=== PATIENT | male | born 1940 | race Caucasian/White ===

== ENCOUNTER 2024-03-21 09:44 | Outpatient (CLI) | payer MEDICARE, SELFPAY ==
[2024-03-21 10:30] LABS: Albumin Level 4.2 g/dL (3.5-5.1); Estimated Glomerular Filt Rate 48
== END 2024-03-21 09:45 | disposition home or self-care (01) ==
PROVIDERS: Visit Provider Orthopaedic Surgery
DX: Z01.812 Encounter for preprocedural laboratory examination (principal); M16.11 Unilateral primary osteoarthritis, right hip
CPT/HCPCS: 36415; 82040; 82565

== ENCOUNTER 2024-04-23 12:49 | Outpatient (CLI) | payer MEDICARE, SELFPAY ==
[2024-04-23 14:20] LABS: Basophils Percent Auto 0.3 % (0.2-1.2); Eosinophils Absolute Auto 0.1 K/mm3 (0-0.3); Eosinophils Percent Auto 0.9 % (0-4.4); Hematocrit 42.8 % (42.0-52.0); Hemoglobin 14.8 g/dL (14.0-18.0); Immature Granulocyte Absolute 0.02 K/mm3 (0.00-0.031); Immature Granulocyte Percent A 0.3 % (0-0.5); Lymphocytes Absolute Auto 1.34 K/mm3 (0.9-3.2); Lymphocytes Percent Auto 17.2 % (18.3-44.2); Mean Corpuscular HGB Conc 34.6 g/dl (32-36); Mean Corpuscular Hemoglobin 31.5 pg (26-34); Mean Corpuscular Volume 91.1 fl (80-100); Mean Platelet Volume 9.2 fl (7.4-10.4); Monocytes Absolute Auto 0.5 K/mm3 (0.1-0.6); Monocytes Percent Auto 6.3 % (2.6-8.5); Neutrophils Absolute Auto 5.8 K/mm3 (1.3-6.7); Platelet Count Result 152 k/mm3 (150-375); Red Cell Distribution Width 12.3 % (11.5-14.5); White Blood Count 7.8 K/mm3 (4.5-10.0)
[2024-04-23 14:38] LABS: Hemoglobin A1C 5.4 % (<5.7)
[2024-04-23 14:40] LABS: Glucose 158 mg/dL (65-110)
[2024-04-23 15:00] LABS: Urine Cotinine NEGATIVE
[2024-04-23 15:39] LABS: MRSA (PCR) NOT DETECTED (NOT DETECTE)
== END 2024-04-23 12:50 | disposition home or self-care (01) ==
LOC: ANHSURGERY 12:56
PROVIDERS: Visit Provider Orthopaedic Surgery
DX: M16.11 Unilateral primary osteoarthritis, right hip (principal)
CPT/HCPCS: 80307; 82947; 83036; 85025; 87641

== ENCOUNTER 2024-05-08 02:45 | Day surgery (SDC) | payer MEDICARE, SELFPAY ==
--- NOTE | 2024-04-23 13:39 | PC.NURSE ---
Report to the Outpatient Waiting Room, entrance under the green pavilion located off [facility], at time _11:00 AM on date05/08/24 . Planned Procedure Time: _1:00 PM .? Time changes happen often and if your time is changed the preop area will call you the afternoon before. - You and your visitor will be asked to self-screen and do not enter if you have any COVID symptoms. Please call surgeon if you need to reschedule. - A mask is optional within the hospital at this time. Patients may have clear liquids (water, carbonated beverages, clear teas, apple juice) until 3 hours prior to surgery( 10 AM) with a maximum of 20 ounces. - No food from midnight until time of surgery and no smoking - Infants may have breast milk until 4 hours before surgery, formula 6 hours prior to surgery. - Children will be allowed to drink immediately following surgery.? If applicable, please bring a bottle or sippy cup to assist with drinking. Juice, water, soda, and popsicles are readily available.? For infants on formula, please bring formula the day of surgery.? Pacifiers are allowed. Take only the following medications with a SIP of water on the morning of surgery: __NONE DO NOT STOP ANY OF YOUR OTHER PRESCRIPTION MEDICATIONS PRIOR TO SURGERY EXCEPT THE FOLLOWING Medications to discontinue per physician ___HOLD IBUPROFEN 7 DAYS PRE OP PER DR HOOD LAST DOSE 04/30/24. MAY TAKE TYLENOL IF NEEDED FOR PAIN. HOLD ALL VITAMINS 3 DAYS PRE OP .LAST DOSE 05/04/24 Please no make-up, nail angolan, hairspray, perfume, deodorant, or body powder the day of surgery.? No jewelry (including any body piercings) or valuables the day of surgery, leave them at home.? Please take a shower or bath the night before, or the morning of, surgery with an antibacterial soap.? Wear comfortable, loose fitting clothing.? Children are encouraged to wear pajamas. - Jewelry must be removed prior to entering the operating room.? Rings and piercings that are not removed may be cut off. - The hospital will not accept responsibility for valuables.? - Please leave all valuables, including medications, at home the day of surgery. If you are going home after surgery, a licensed gravel truck driver must drive you home.? - NO public transportation without another adult if you receive anesthesia. - We recommend that an adult stay with you for 24 hours following discharge. - We also recommend that you do not drive, make important decision, drink alcoholic beverages, or take any drugs that were not prescribed by your health care provider for at least 24 hours after your discharge time. Follow any additional instructions given to you from your surgeon. VERBAL AND WRITTEN instructions given to ___PATIENT and asked if any additional questions and then verbalized understanding. Patient advised to call surgeon office or pre surgery nurse liaison [phone] if any additional questions.
[2024-04-23 14:01] VITALS: BP 163/69; PULSE 74; RESP 18; TEMP 36.9; O2SAT 97
[2024-05-08] VITALS (12 sets, daily range): BP systolic 131–175; BP diastolic 50–72; PULSE 52–102; RESP 14–20; TEMP 36.2–36.7; O2SAT 93–100
--- NOTE | ~2024-05-08 | XR_ITS ---
XR hip RT min 2V Ordering provider: Chace Lundberg MD History: . POST OP RIGHT TOTAL HIP . Comparison: None. FINDINGS: BONES: No acute fracture or dislocation. HIP JOINT SPACES: Right hip arthroplasty SOFT TISSUES: Postoperative changes in the right hip area. IMPRESSION: No acute osseous abnormality. Right hip arthroplasty. Reviewed, dictated and finalized at location A.
--- NOTE | 2024-05-08 07:21 | WPDHPUPDATE1 ---
History and Physical Update Update Date/Time: 05/08/24 07:21 History and Physical has been reviewed, including an updated exam of the patient. There are NO changes in the patient's condition. Risks, benefits, and alternatives have been discussed and questions answered. Patient agrees to proceed with procedure.
[2024-05-08] MEDS: ACETAMINOPHEN 500 MG TABLET 1000 MG PO (11:10)
[2024-05-08] MEDS: TRANEXAMIC ACID 1,000MG/ISO100 1,000 MG/100 ML BAG 200 MG IVPB (11:15)
[2024-05-08] MEDS: LACTATED RINGERS 1,000 ML 30 ML IV CONT ×2 (11:15→15:37)
--- NOTE | 2024-05-08 13:07 | WPDANESEPPF ---
Anes - Initial Pre Proc Eval Procedure: Operation Date: 05/08/24 13:00 Proposed Procedures p Right Total Hip Arthroplasty - Chace Lundberg MD Date/Time: 05/08/24 13:07 Surgeon: Chace Lundberg MD Pre Op Diagnosis: primary oa right hip Patient Data Age: 84 Gender: M Height: 1.78 m Weight: 94.4 kg Last Vital Signs Temp 97.2 F L 05/08/24 11:13 Pulse 59 L 05/08/24 11:13 Resp 18 05/08/24 11:13 BP 175/50 H 05/08/24 11:13 Pulse Ox 97 05/08/24 11:13 O2 Del Method Room Air 05/08/24 11:13 Allergies Allergy/AdvReac Type Severity Reaction Status Date / Time No Known Allergies Allergy Verified 05/08/24 11:31 Home Medications Medication Instructions Recorded Confirmed Type vitamin A-vit C-vit E-zinc-Cu 1 tablet PO BID 01/09/24 05/08/24 History tablet ibuprofen 600 mg tablet 600 mg PO PRN PRN Pain 04/23/24 05/08/24 History rivaroxaban 10 mg tablet (Xarelto) 10 mg PO DAILY #30 tabs 04/25/24 Rx Laboratory Tests 05/08/24 11:13 Blood Type A Negative Antibody Screen Negative Patient hx anesthesia problems: none Family hx anesthesia problems: none Results Review: All pre-operative results and documents have been reviewed as part of the pre-operative evaluation. [facility] Surgical History Surgical History History of cholecystectomy (~2018) History of colon resection (~2016) History of hernia surgery (~1967) Family History Family History Mother Colon cancer Father Lung cancer Social History Social History Smoking packs per day: 1 Smoking cigarettes per day: 20.0 Years smoked: 15 Smoking pack-years: 15.00 Smoking status: Former smoker Tobacco type: cigarettes Smoking end date: 07/18/77 Additional smoking assessment comments: DENIES ANY FORM OF TOBACCO USE Alcohol intake: current Drinks per week: 12 Substance use: never Do You Feel Safe in your Home?: Yes Lack of Transportation: No Lack of Food: Never True Current Housing: I Have Housing Concerned About Future Housing: No Difficulty Paying Gas/Electric Bills: No Difficulty Paying for Meds: No Currently Unemployed: No Education: Master's Degree or Higher Difficulty w/ Childcare or Family Care: No Living arrangements: with family Spiritual care concerns: No Anes - Eval Final PreProcedure Day of Procedure 05/08/24 13:07 Patient weight: normal Heart: regular rate and rhythm Lungs: clear to auscultation Airway: Mallampati scale class III Neurological: alert and oriented Last oral intake: >/= 8 hours ASA classification: III Emergent: no Anesthetic plan: proceed Anesthesia type and monitoring: general ETT and standard monitoring Results Review: All pre-operative results and documents have been reviewed as part of the pre-operative evaluation. Informed Consent: The patient's anesthetic plan and its attendant risks and benefits were discussed with the patient/family/POA. Questions were solicited and answers provided to the satisfaction of the patient/family/POA.
[2024-05-08] MEDS: ceFAZolin 2 GM/D5W 50 ML 2 GM/50 ML BAG IVPB ×2 (13:24→20:46)
[2024-05-08] MEDS: SODIUM CHLORIDE 0.9% IV 37.7 ML, MORPHINE SULFATE INJ (*CRX) 2 MG, ROPivacaine HCL 1% 2... INFILTRATE (14:08)
--- NOTE | 2024-05-08 15:50 | W.PM.PROC2 ---
Procedure Note - Detailed Date of Procedure 05/08/24 Pre-op Diagnosis Right hip degenerative arthritis. Post-op Diagnosis Same Procedure Performed Right Total Hip Arthroplasty Surgeon Chace Lundberg MD Outdoor Pursuits Instructor Bernadette Flores PA-C Anesthesia General Findings Advanced disease. Significant varus neck angle. <5 degrees [place] femur anteversion. Combined anteversion 35 with 10 elevated liner. Excellent bone quality. Description of Procedure The patient was given preoperative antibiotics. A general anesthetic was administered. The patient was carefully placed in the lateral decubitus position on the PEG board. The shoulders and hips were carefully positioned for component and leg length positioning reference. The hip was prepped and draped in the usual sterile fashion. A longitudinal incision was created over the posterior aspect of the greater trochanter. Careful dissection was brought down through the deep fascia with electrocautery. A minimally invasive optimized posterior approach to the hip was performed. The short external rotators and capsule were taken down in an L-shaped capsulotomy. The tissue was tagged for later repair using number 2 high strength suture. The femoral neck was measured and taken in situ. The femoral head was removed. The acetabulum was carefully exposed. The inferior capsule was released. The labrum was resected. The acetabulum was sequentially reamed to one over the intended cup size. The cup was impacted into position with excellent press-fit. Typical anatomic landmarks, including the bony contact points as well as the inferior transverse acetabular ligament were used to confirm cup positioning with preoperative templating. Attention was turned to the femur, which was carefully exposed. The hip was reamed and then broached sequentially. Excellent press-fit was obtained with the broach. The hip was trialed. Measurements were utilized, including the lesser trochanter as well as the center of the femoral head and the tip of the trochanter, and excellent assessment of the offset and leg lengths were confirmed. The real component was impacted into position. Trialing confirmed appropriate leg length and offset with soft tissue balancing as well apparent feel of the leg, both at the knee and the heel. Soft tissues were assessed using the the iliotibial band. Reduction of the posterior capsule and external rotators were also used as a secondary assessment. The hip was copiously irrigated with pulsatile lavage periodically throughout the procedure. The real components were then assembled and reduced. The hip was stable throughout typical maneuvers, including extension, external rotation to 70 degrees, the position of sleep as well as flexion to 90 degrees with internal rotation past 30 degrees. The shake test confirmed stability without impingement. Osteophytes were removed as necessary. The short external rotators and capsule were repaired back to the posterior trochanter through drill holes. The deep fascia was repaired with running number 2 barbed suture, followed by 2-0 Stratafix suture and 3-0 Stratafix suture in the dermis. Steri-Strips were placed on the skin, followed by a sterile occlusive dressing. There were no complications. Meticulous hemostasis was maintained with the AquaMantys device. The patient was brought to the recovery room in stable condition. There were no complications. Physician embroidery assistant, Bernadette Flores PA-C, required for surgery; including patient positioning, draping, tissue retraction, maintaining instrument position, hip dislocation/ relocation, wound closure, and dressing placement. Implants The Accolade II hip stem, 127 degree size 6 , was utilized with excellent press-fit. The 56 mm Trident II acetabular component was impacted with excellent press-fit stability. 10 degree elevated polyethylene liner the +2.5, 36 mm Biolox ceramic femoral head was utilized. Estimated Blood Loss
--- NOTE | 2024-05-08 16:35 | ADMGEN ---
This patient, Mariano Baca, was admitted to 3 [facility] Surg Room 320-01. Patient/family oriented to hospital policies and general routines including ID bracelet, bed and alarms, visiting hours, pain management, procedures, bathroom and other care routines, personal items, smoking policy, room service/diet, and visiting hours. Information on how to activate the Rapid Response Team has been discussed. Patient/Family are encouraged to report perceived risks to care and to ask questions if they do not understand what they are told or what they should do.
[2024-05-08] MEDS: SENNA/DOCUSATE SODIUM TABLET 2 TAB PO (17:26)
[2024-05-08] MEDS: CYCLOBENZAPRINE HCL 10 MG TABLET PO (17:27)
[2024-05-08] MEDS: oxyCODONE/ACETAMINOPHEN (*CRX) 10-325 MG TABLET 1 TAB PO (17:27)
[2024-05-08] MEDS: RIVAROXABAN 10 MG TABLET PO (20:26)
[2024-05-08] MEDS: FAMOTIDINE 20 MG TABLET PO (20:26)
[2024-05-08] MEDS: ACETAMINOPHEN 325 MG TABLET 650 MG PO (23:41)
[2024-05-09 04:00] VITALS: BP 140/58; PULSE 52; RESP 18; TEMP 36.7; O2SAT 96
--- NOTE | 2024-05-09 04:19 | PC.NURSE ---
read, reviewed and agree with Kathleen Solares rn charting and documentation
[2024-05-09] MEDS: ceFAZolin 2 GM/D5W 50 ML 2 GM/50 ML BAG IVPB ×2 (05:11→12:01)
[2024-05-09] MEDS: ACETAMINOPHEN 325 MG TABLET 650 MG PO ×2 (05:11→12:01)
[2024-05-09 06:56] LABS: Basophils Percent Auto 0.2 % (0.2-1.2); Eosinophils Absolute Auto 0.1 K/mm3 (0-0.3); Eosinophils Percent Auto 0.9 % (0-4.4); Hematocrit 38.1 % (42.0-52.0); Hemoglobin 12.4 g/dL (14.0-18.0); Immature Granulocyte Absolute 0.03 K/mm3 (0.00-0.031); Immature Granulocyte Percent A 0.4 % (0-0.5); Immature Platelet Fraction Pct 1.8 % (0.9-11.2); Lymphocytes Absolute Auto 1.38 K/mm3 (0.9-3.2); Lymphocytes Percent Auto 17.1 % (18.3-44.2); Mean Corpuscular HGB Conc 32.5 g/dl (32-36); Mean Corpuscular Hemoglobin 30.7 pg (26-34); Mean Corpuscular Volume 94.3 fl (80-100); Mean Platelet Volume 9.5 fl (7.4-10.4); Monocytes Absolute Auto 0.8 K/mm3 (0.1-0.6); Monocytes Percent Auto 9.4 % (2.6-8.5); Neutrophils Absolute Auto 5.8 K/mm3 (1.3-6.7); Platelet Count Result 124 k/mm3 (150-375); Red Blood Count 4.04 M/mm3 (4.6-6.20); Red Cell Distribution Width 12.8 % (11.5-14.5); White Blood Count 8.1 K/mm3 (4.5-10.0)
[2024-05-09 07:05] LABS: Potassium 4.5 mmol/L (3.4-5.0)
[2024-05-09 07:17] LABS: Anion Gap 4 mmol/L (4-12); Blood Urea Nitrogen 19 mg/dL (9-20); Calcium 8.4 mg/dL (8.4-10.2); Carbon Dioxide 28 mmol/L (22-30); Chloride 103 mmol/L (98-107); Estimated CRCL calculation 40 ml/min; Estimated Glomerular Filt Rate 53; Glucose 95 mg/dL (65-110); Sodium 135 mmol/L (137-145)
[2024-05-09 08:00] VITALS: BP 135/61; PULSE 51; RESP 18; TEMP 36.5; O2SAT 97
[2024-05-09] MEDS: polyethylene glycoL 3350 17 GM POWD.PACK PO (08:28)
[2024-05-09] MEDS: SENNA/DOCUSATE SODIUM TABLET 2 TAB PO (08:28)
[2024-05-09] MEDS: FAMOTIDINE 20 MG TABLET PO (08:28)
[2024-05-09] MEDS: oxyCODONE/ACETAMINOPHEN (*CRX) 10-325 MG TABLET 1 TAB PO (08:28)
[2024-05-09 11:51] VITALS: BP 113/59; PULSE 52; RESP 18; TEMP 36.7; O2SAT 97
[2024-05-09] MEDS: CYCLOBENZAPRINE HCL 10 MG TABLET PO (12:01)
--- NOTE | 2024-05-09 15:53 | PM.DS ---
DS: Admitting Diagnosis Discharge Date 05/09/24 Admitting Diagnosis Right hip arthritis. DS: Discharge Diagnosis Discharge Diagnosis (1) Orthopedic aftercare for joint replacement: Qualifiers: Joint replacement surgery site: hip Laterality: right Qualified Code(s): Z47.1 - Aftercare following joint replacement surgery; Z96.641 - Presence of right artificial hip joint Code(s): Z47.1 - Aftercare following joint replacement surgery Status: Acute (2) Status post total hip replacement, right: Code(s): Z96.641 - Presence of right artificial hip joint Status: Acute DS: Summary Hospital Course Reason for hospitalization: Total hip arthroplasty. Hospital Course: Tolerated surgery well. Progressed appropriately with therapy. Status at Discharge Functional status at discharge: uses cane/walker Overall status at discharge: patient is progressing back to baseline Time Spent with Patient Time attestation: Total time spent providing and/or coordinating discharge services: Exam Const: General: no acute distress Resp: Effort & Inspection: normal respiratory effort Skin: Other: Wound healing well. Mepilex dressing intact. No hematoma or drainage. Neuro: Motor exam (neuro): 5/5 motor strength present throughout Sensory Exam: normal sensation Psych: Mental Status: mental status grossly normal Speech and movement: Normal speech and movement present DS: Data Data Completed and Pending Labs on day of discharge: Labs from last 24 hours 05/09/24 06:06 WBC 8.1 RBC 4.04 L Hgb 12.4 L Hct 38.1 L MCV 94.3 MCH 30.7 MCHC 32.5 RDW 12.8 Plt Count 124 L MPV 9.5 Immature Gran % (Auto) 0.4 Neut % (Auto) 72.0 Lymph % (Auto) 17.1 L Dickey % (Auto) 9.4 H Eos % (Auto) 0.9 Baso % (Auto) 0.2 Lymph # (Auto) 1.38 Dickey # (Auto) 0.8 H Eos # (Auto) 0.1 Baso # (Auto) 0.0 Abs Immat Gran (auto) 0.03 Absolute Neuts (auto) 5.8 Absolute Nucleated RBC 0.000 Nucleated RBC % 0.0 % Immature Plt Fraction 1.8 Sodium 135 L Potassium 4.5 Chloride 103 Carbon Dioxide 28 Anion Gap 4 BUN 19 Creatinine 1.30 Estim Creat Clear Calc 40 Estimated GFR 53 L Glucose 95 Calcium 8.4 Discharge Plan Discharge Patient Disposition: Home, Self-Care Discharge Instructions: See green instruction sheets Patient Instructions: Rivaroxaban (By mouth) Stand Alone Forms: General Discharge Instructions Follow-up/Referrals: Bernadette Flores PA [Physician Criminal Justice Instructor] - Discharge Medications: New oxycodone-acetaminophen 5-325 mg tablet 1 - 2 tablet PO Q4-6H PRN (Reason: pain) Qty: 30 0RF Continued vitamin A-vit C-vit E-zinc-Cu Tablet 1 tablet PO BID vit C,E,Zn,[id number]-dir-[id number] 250-2.5-0.5 mg Capsule 1 cap PO BID Xarelto 10 mg tablet 10 mg PO DAILY Qty: 30 0RF Rx Instructions: Take for 30 days AFTER surgery. Discontinued ibuprofen 600 mg Tablet 600 mg PO PRN PRN (Reason: Pain)
== END 2024-05-09 14:00 | disposition home or self-care (01) ==
LOC: ANHSURGERY 13:32 → ANH3MEDSUR 16:28
PROVIDERS: Physician Assistant Surgical; Visit Provider Orthopaedic Surgery
PROC: (CPT 27130; principal; 2024-05-08 13:00)
DX: M16.11 Unilateral primary osteoarthritis, right hip (principal); M51.369 Other intervertebral disc degeneration, lumbar region without mention of lumbar back pain or lower extremity pain; Z79.1 Long term (current) use of non-steroidal anti-inflammatories (NSAID); Z79.01 Long term (current) use of anticoagulants; Z98.890 Other specified postprocedural states; Z90.49 Acquired absence of other specified parts of digestive tract; Z87.891 Personal history of nicotine dependence; Z80.0 Family history of malignant neoplasm of digestive organs; Z80.1 Family history of malignant neoplasm of trachea, bronchus and lung
CPT/HCPCS: 27130; 36415; 73502; 80048; 85025; 85055; 86850; 86900; 86901; 97110; 97161; 97165; 97530; 97535; A9270; C1776; J0171; J0690; J1100; J1596; J1885; J2270; J2405; J2704; J2795; J3010; J7120